=== PATIENT | male | born 1995 | race Caucasian/White ===

== ENCOUNTER 2018-01-28 00:03 | Emergency (ER) | payer OTHER ==
[~2018-01-28] VITALS: Ht 180.3 cm; Wt 95.2 kg
[~2018-01-28 00:03] MED LIST: Prednisone20 MG PO
== END 2018-01-28 03:05 | disposition home or self-care (01) ==
LOC: ER 00:03
DX: T78.1XXA Other adverse food reactions, not elsewhere classified, initial encounter (principal); Z91.010 Allergy to peanuts
CPT/HCPCS: 36415; J2930; J3490